=== PATIENT | male | born 1985 | race Two or more races ===

== ENCOUNTER 2016-10-09 16:49 | Emergency (ER) | payer SELFPAY | END 2016-10-09 17:38 | disposition home or self-care (01) | LOC: ED 16:49 | DX: H66.92 Otitis media, unspecified, left ear (principal); H10.33 Unspecified acute conjunctivitis, bilateral; J02.9 Acute pharyngitis, unspecified; J11.1 Influenza due to unidentified influenza virus with other respiratory manifestations ==